=== PATIENT | female | born 1945 | race Asian ===

== ENCOUNTER 2016-05-20 15:54 | Emergency (ER) | payer BC ==
[2016-05-20 16:18] VITALS: BP 146/66
--- NOTE | 2016-05-20 16:23 | UC ---
Skin Complaint HPI - HPI Summary HPI Summary: 70 yo female with itchy neck rash x 3 days denies wearing necklace no new soaps or detergents - History of Current Complaint Chief Complaint: UCSkin Time Seen by Provider: 05/20/16 16:22 Stated Complaint: RASH Hx Obtained From: Patient Hx Last Menstrual Period: menopause Onset/Duration: Gradual Onset, Lasting Days Onset Severity: Mild Current Severity: Mild Pain Intensity: 0 Location: Discrete Character: Swelling, Pruritus, Redness Aggravating: Nothing Alleviating: Nothing Associated Signs & Symptoms: Positive: Rash - Allergy/Home Medications Allergies/Adverse Reactions: Allergies Allergy/AdvReac Type Severity Reaction Status Date / Time No Known Allergies Allergy Verified 05/20/16 16:18 Home Medications: Home Medications Calcium W/ Vitamins D & K [Viactiv 500-500-40 mg-Unt-Mcg] 05/20/16 [History] Cholecalciferol [Vitamin D3 Ultra Strength] 5,000 unit PO 05/20/16 [History] Multiple Vitamins W/ Minerals [Multivitamin Adults] 05/20/16 [History] Review of Systems Constitutional: Negative Skin: Rash Eyes: Negative ENT: Negative Respiratory: Negative Cardiovascular: Negative Gastrointestinal: Negative Genitourinary: Negative Motor: Negative Neurovascular: Negative Musculoskeletal: Negative Neurological: Negative Psychological: Negative All Other Systems Reviewed And Are Negative: Yes PMH/Surg Hx/FS Hx/Imm Hx Previously Healthy: Yes Cancer History Of: Denies: Breast Cancer - Surgical History Surgical History: None - Family History Known Family History: Positive: Cardiac Disease, Hypertension, Diabetes, Other - cva - Social History Alcohol Use: None Substance Use Type: None Smoking Status (MU): Never Smoked Tobacco Physical Exam Triage Information Reviewed: Yes Appearance: Well-Appearing, No Pain Distress, Well-Nourished Vital Signs: Initial Vital Signs Temp 97.2 F 05/20/16 16:09 Pulse 63 05/20/16 16:09 Resp 16 05/20/16 16:09 BP 146/66 05/20/16 16:09 Pulse Ox 100 05/20/16 16:09 Vital Signs Reviewed: Yes Eyes: Positive: Conjunctiva Clear ENT: Positive: Hearing grossly normal. Negative: Nasal congestion, Nasal drainage, Trismus, Muffled/hoarse voice Neck: Positive: Supple, Nontender Respiratory: Positive: Lungs clear, Normal breath sounds, No respiratory distress Cardiovascular: Positive: RRR, No Murmur, Pulses Normal Musculoskeletal: Positive: Strength Intact, ROM Intact Neurological Exam: Normal Neurological: Positive: Alert Skin: Positive: rashes - red macular /papular neck rash with dermatographia Course/Dx - Course Course Of Treatment: refuses to use antihistamines - Diagnoses Provider Diagnoses: contact dermatitis Discharge - Discharge Plan Condition: Stable Disposition: HOME Prescriptions: Triamcinolone 0.5% CREAM(NF) [Triamcinolone 0.5% CREAM*] 1 applic TOPICAL QID PRN #[id number] tube PRN Reason: Rash Patient Education Materials: Contact Dermatitis (ED) Referrals: Indira Jameson MD [Primary Care Provider] - 2 Weeks (if not better) Additional Instructions: you can also use sarna anti itch lotion (over the counter) call for any questions return for any problems
== END 2016-05-20 17:00 | disposition home or self-care (01) ==
LOC: UCEAST 15:54
DX: L25.9 Unspecified contact dermatitis, unspecified cause (principal)
CPT/HCPCS: 99212; G0463

== ENCOUNTER 2018-12-12 14:49 | Emergency (ER) | payer BC, MEDICARE ==
--- NOTE | 2018-12-12 15:28 | UC ---
Lower Extremity/Ankle HPI - HPI Summary HPI Summary: 73 yo female presents with LEFT knee pain. She tells me that she is an avid golfer and on 12/09 was golfing. Later that night she noticed some left knee pain and swelling that has persisted since that time. She has never had issues with her knee in the past. She took some ibuprofen with mild relief. Has not been resting, icing, or elevating. Has been quite active and walking a lot recently. Denies specific injury, numbness, or tingling. - History of Current Complaint Stated Complaint: LEFT LEG PAIN Time Seen by Provider: 12/12/18 15:26 Hx Obtained From: Patient Hx Last Menstrual Period: menopause Onset/Duration: Sudden Onset Severity Initially: Moderate Severity Currently: Moderate Pain Intensity: 7 Pain Scale Used: 0-10 Numeric Aggravating Factor(s): Standing, Ambulation Alleviating Factor(s): Rest, Elevation - Allergies/Home Medications Allergies/Adverse Reactions: Allergies Allergy/AdvReac Type Severity Reaction Status Date / Time No Known Allergies Allergy Verified 05/20/16 16:18 Home Medications: Home Medications Multivit with Calcium,Iron,Min [Multiple Vitamins For Women] 1 each PO DAILY 10/23 [History Confirmed 12/12/18] PMH/Surg Hx/FS Hx/Imm Hx - Additional Past Medical History Additional PMH: None - Surgical History Surgical History: None - Family History Known Family History: Positive: Cardiac Disease, Hypertension, Diabetes, Other - cva - Social History Lives: With Family Alcohol Use: None Substance Use Type: None Smoking Status (MU): Never Smoked Tobacco Review of Systems All Other Systems Reviewed And Are Negative: No Constitutional: Positive: Negative Skin: Positive: Negative Respiratory: Positive: Negative Cardiovascular: Positive: Negative Neurovascular: Positive: Negative Musculoskeletal: Positive: Other: - Left knee pain Neurological: Positive: Negative Psychological: Positive: Negative Physical Exam - Summary Physical Exam Summary: GENERAL: NAD. WDWN. No pain distress. SKIN: No rashes, sores, lesions, or open wounds. CHEST: No accessory muscle use. Breathing comfortably and in no distress. CV: Pulses intact popliteal, PT, and DP. Cap refill <2seconds MSK: LEFT KNEE: Moderate edema about knee. Mild TTP about medial aspect of knee. Pain with extension. Strength 5/5. No patella apprehension. Negative Abiodun, A/P drawer, Willie, and varus/valgus stress. LEFT CALF: NTTP. No edema or erythema. NEgative krishna sign NEURO: Alert. Sensations intact and symmetric B/L LEs PSYCH: Age appropriate behavior. Triage Information Reviewed: Yes Vital Signs: Vital Signs: Temp Pulse Resp BP Pulse Ox 98.1 F 78 16 161/79 98 12/12/18 15:25 12/12/18 15:25 12/12/18 15:25 12/12/18 15:25 12/12/18 15:25 Vital Signs Reviewed: Yes Diagnostics - Radiology Knee Radiology Interpretation Completed By: Radiologist Summary of Radiographic Findings: IMPRESSION: Unremarkable left knee. Lower Extremity Course/Dx - Course Course Of Treatment: XR as above. Suspect flare of knee arthritis causing joint pain and swelling. Her knee was AMANDA wrapped today. Advised to RICE and continue ibuprofen. F/u with Orthopedics for further eval - Differential Dx/Diagnosis Provider Diagnosis: Left knee pain Discharge ED - Sign-Out/Discharge Documenting (check all that apply): Patient Departure All imaging exams completed and their final reports reviewed: Yes - Discharge Plan Condition: Stable Disposition: HOME Patient Education Materials: Osteoarthritis (DC), Swollen Knee Joint (ED) Referrals: Indria Jameson MD [Primary Care Provider] - Bhavana Chavarria MD [Medical Doctor] - As Soon As Possible Additional Instructions: If you develop a fever, shortness of breath, chest pain, new or worsening symptoms - please call your PCP or go to the ED immediately. Your blood pressure was high at todays visit. Please see your primary provider within 4 weeks for recheck and re-evaluation. 1) Rest, Ice, and elevate your knee intermittently throughout the day to decrease pain and swelling 2) May take tylenol/ibuprofen as directed for discomfort 3) I recommend that you call Orthopedics at the number below to schedule an appointment within 1 week for a recheck of your knee - Billing Disposition and Condition Condition: STABLE Disposition: Home
[2018-12-12 15:29] VITALS: BP 161/79
== END 2018-12-12 15:39 | disposition home or self-care (01) ==
LOC: UCCORT 14:49
DX: M25.562 Pain in left knee (principal)
CPT/HCPCS: 99211; G0463